=== PATIENT | female | born 1950 | race Caucasian/White ===

== ENCOUNTER 2017-12-03 14:16 | Emergency (ER) | payer MEDICARE ==
[2017-12-03 15:13] LABS: Bilirubin Negative (Negative); Blood, Urine Negative (Negative); Clarity CLEAR (Clear); Glucose, Urine (Dipstick) Negative (Negative); Leukocyte Negative (Negative); Nitrite Negative (Negative); Protein, Urine (Dipstick) Negative (Neg-Trace); Specific Gravity, Urine 1.024 (1.002-1.036)
--- NOTE | 2017-12-03 15:43 | CT ---
LUMBAR SPINE CT SCAN WITHOUT IV CONTRAST: HISTORY: A 67-year-old female with a history of low back pain following a fall from standing 1 week ago. [place] vill[place]. FINDINGS: Mild, less than 50% vertical height fracture of L1 vertebral body with mild superior retropulsion wit h some mild to moderate central canal stenosis. There is also a less than 50% vertical height loss f racture of L2 vertebral body with very mild superior retropulsion with some mild to moderate overall central canal stenosis. Significant bone demineralization. Moderate lateral recess stenosis at L2-L3. Moderate to severe central canal lateral recess and foraminal stenosis at L3-L4. Severe central canal, lateral recess, and foraminal stenosis at L4-L5. Severe left foraminal stenosis at L5-S1. IMPRESSION: Acute-appearing mild compression/burst fractures of L1 and L2 vertebral bodies with very minute retro pulsion. Multilevel variable severity canal, lateral recess, and foraminal stenosis most marked at L 3-L4 and L4-L5. POS: [facility]
== END 2017-12-03 17:13 | disposition home or self-care (01) ==
LOC: ERS 14:16
DX: S32.011A Stable burst fracture of first lumbar vertebra, initial encounter for closed fracture (principal); S32.021A Stable burst fracture of second lumbar vertebra, initial encounter for closed fracture; Z79.82 Long term (current) use of aspirin; W18.30XA Fall on same level, unspecified, initial encounter
CPT/HCPCS: 72131; 81003

== ENCOUNTER 2017-12-09 19:20 | Emergency (ER) | payer MEDICARE ==
[2017-12-09] MEDS ORDERED: Magnesium Citrate 300 ML BOT PO SCH (20:30)
[2017-12-09] MEDS ORDERED: Magnesium Citrate 300 ML BOT ONE (20:50)
== END 2017-12-09 20:55 | disposition home or self-care (01) ==
LOC: ERS 19:20
DX: S32.019A Unspecified fracture of first lumbar vertebra, initial encounter for closed fracture (principal); S32.029A Unspecified fracture of second lumbar vertebra, initial encounter for closed fracture; F17.210 Nicotine dependence, cigarettes, uncomplicated; W18.30XA Fall on same level, unspecified, initial encounter
CPT/HCPCS: 96372; J2270

== ENCOUNTER 2017-12-31 13:46 | Outpatient (CLI) | payer MEDICARE ==
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
== END 2017-12-31 13:47 | disposition home or self-care (01) ==
LOC: TBSIIMAG 13:46
PROVIDERS: ATTEND Surgery
DX: S32.001A Stable burst fracture of unspecified lumbar vertebra, initial encounter for closed fracture (principal); M47.896 Other spondylosis, lumbar region
CPT/HCPCS: 72100

== ENCOUNTER 2018-02-16 12:09 | Outpatient (CLI) | payer MEDICARE | END 2018-02-16 12:10 | disposition home or self-care (01) | LOC: BICRAD 12:09 | PROVIDERS: ATTEND Surgery | DX: M54.5 Low back pain (principal); M47.896 Other spondylosis, lumbar region; R93.7 Abnormal findings on diagnostic imaging of other parts of musculoskeletal system | CPT/HCPCS: 72100 ==